=== PATIENT | female | born 1955 | race Caucasian/White ===

== ENCOUNTER → 2016-11-17 | Outpatient (CLI) | payer BC | LOC: MAMMO 14:55 | DX: Z12.31 Encounter for screening mammogram for malignant neoplasm of breast (principal) | CPT/HCPCS: G0202 ==

== ENCOUNTER → 2017-08-18 | Outpatient (CLI) | payer BC | LOC: RAD 07:48 | DX: R14.0 Abdominal distension (gaseous) (principal); R10.84 Generalized abdominal pain ==

== ENCOUNTER → 2018-12-06 | Outpatient (CLI) | payer BC | LOC: MAMMO 11:23 | DX: Z12.31 Encounter for screening mammogram for malignant neoplasm of breast (principal) ==

== ENCOUNTER → 2019-12-12 | Outpatient (CLI) | payer MEDICARE, OTHER | LOC: MAMMO 10:17 | DX: Z12.31 Encounter for screening mammogram for malignant neoplasm of breast (principal) ==

== ENCOUNTER 2019-12-20 11:15 | Outpatient (RCR) | payer MEDICARE, OTHER | END 2019-12-20 12:00 | LOC: PT 11:15 | DX: M48.061 Spinal stenosis, lumbar region without neurogenic claudication (principal); Z96.642 Presence of left artificial hip joint ==

== ENCOUNTER 2020-03-26 10:58 | Outpatient (RCR) | payer MEDICARE, OTHER ==
[2020-05-18] MEDS ORDERED: LOSARTAN POTASS50 M1 PO (23:15)
[2020-05-18] MEDS ORDERED: NORCO 325 MG-51 TA1 PO (23:16)
== END 2020-06-24 | disposition home or self-care (01) ==
LOC: OT
DX: G56.03 Carpal tunnel syndrome, bilateral upper limbs (principal); G62.9 Polyneuropathy, unspecified

== ENCOUNTER 2020-05-18 23:11 | Emergency (ER) | payer MEDICARE, OTHER ==
[2020-05-18] MEDS ORDERED: LOSARTAN POTASS50 M1 PO (23:15)
[2020-05-18] MEDS ORDERED: NORCO 325 MG-51 TA1 PO (23:16)
[2020-05-19 00:19] LABS: EOS % 1.1 % (1.0-5.0); HEMATOCRIT 32.8 % (37.0-47.0); HEMOGLOBIN 11.6 g/dL (12.5-16.0); MEAN CELL VOLUME 96 fl (78-100); MEAN CORPUSCULAR HEMOGLOBIN 34 pg (27-31); MEAN CORPUSCULAR HGB CONC 35 g/dL (33-37); PLATELET COUNT 204 K/mm3 (130-400); RED BLOOD COUNT 3.41 M/mm3 (4.10-5.30); RED CELL DISTRIBUTION WIDTH 12.3 % (11.5-14.5); WHITE BLOOD COUNT 4.6 K/mm3 (4.8-10.8)
[2020-05-19 00:20] LABS: NEU # 2.7 (1.40-6.50)
[2020-05-19 00:21] LABS: EOS # 0.1 (0.04-0.40); LYMPH# 1.4 (1.50-4.00); MONO # 0.4 (0.20-0.80)
[2020-05-19 00:24] LABS: ALBUMIN 4.2 g/dL (3.4-4.8)
[2020-05-19 00:25] LABS: CALCIUM 8.7 mg/dL (8.3-10.5)
[2020-05-19 00:26] LABS: TOTAL PROTEIN 7.1 g/dL (6.2-8.1)
[2020-05-19 00:28] LABS: TOTAL BILIRUBIN 0.4 mg/dL (0.2-1.2)
[2020-05-19 01:37] VITALS: BP 147/87
== END 2020-05-19 01:37 | disposition home or self-care (01) ==
LOC: ED 23:11
PROVIDERS: Family Medicine
DX: M25.551 Pain in right hip (principal); I10 Essential (primary) hypertension; G89.29 Other chronic pain; M54.9 Dorsalgia, unspecified
CPT/HCPCS: J1885

== ENCOUNTER → 2020-12-19 | Outpatient (CLI) | payer MEDICARE, OTHER ==
[~2020-12-19] MED LIST: LOSARTAN POTASS50 M1 PO; NORCO 325 MG-51 TA1 PO
== END ==
LOC: MAMMO 09:08
DX: Z12.31 Encounter for screening mammogram for malignant neoplasm of breast (principal)

== ENCOUNTER → 2021-06-05 | Outpatient (CLI) | payer MEDICARE, OTHER | LOC: RAD 17:05 | DX: M84.48XA Pathological fracture, other site, initial encounter for fracture (principal); M48.061 Spinal stenosis, lumbar region without neurogenic claudication; M54.16 Radiculopathy, lumbar region | CPT/HCPCS: A9585 ==

== ENCOUNTER 2021-06-25 10:58 | Outpatient (RCR) | payer MEDICARE, OTHER | END 2021-07-19 | disposition home or self-care (01) | LOC: PT | DX: M48.061 Spinal stenosis, lumbar region without neurogenic claudication (principal); M51.36 Other intervertebral disc degeneration, lumbar region; M43.16 Spondylolisthesis, lumbar region ==

== ENCOUNTER → 2021-12-10 | Outpatient (CLI) | payer MEDICARE, OTHER | LOC: RAD 09:59 → MAMMO 10:45 | DX: Z13.820 Encounter for screening for osteoporosis (principal); M81.0 Age-related osteoporosis without current pathological fracture; M85.80 Other specified disorders of bone density and structure, unspecified site; Z78.0 Asymptomatic menopausal state ==

== ENCOUNTER → 2021-12-10 | Outpatient (CLI) | payer MEDICARE, OTHER | LOC: MAMMO 10:00 | DX: Z12.31 Encounter for screening mammogram for malignant neoplasm of breast (principal) ==

== ENCOUNTER → 2023-01-20 | Outpatient (CLI) | payer MEDICARE, OTHER | LOC: VAS 15:27 → RAD 15:27 | DX: R01.1 Cardiac murmur, unspecified (principal) ==

== ENCOUNTER → 2024-05-01 | Outpatient (CLI) | payer MEDICARE | LOC: RAD 11:03 → MAMMO 11:30 | DX: Z12.31 Encounter for screening mammogram for malignant neoplasm of breast (principal); M81.0 Age-related osteoporosis without current pathological fracture ==